=== PATIENT | female | born 1990 | race Caucasian/White ===

== ENCOUNTER 2019-01-18 18:54 | Inpatient (IN) | payer OTHER ==
[~2019-01-18] VITALS: Ht 157.5 cm; Wt 56.8 kg
[2019-01-18 11:40] VITALS: BP 124/87
--- NOTE | 2019-01-18 18:58 | NUR ---
PT A/OX1, BIB RA100 FROM [facility], FOR ETOH INTOXICATION. BGL WAS 121 IN THE FIELD. PER PARAMEDICS, PT WAS FOUND AT THE [facility]BER [facility] W/ HEAVY ETOH ODOR ON BREATH AND INFORMED BY THE STAFF MEMBERS THAT THE PT HAS BEEN DRINKING ALCOHOL TODAY. PT PRESENTS W/ HEAVY ETOH ODOR ON BREATH, OF CLEAR SPEECH, BUT UNABLE TO REMEMBER THE NAME OF THE [facility] SHE CURRENTLY RESIDES IN. VSS. PT DOES NOT APPEAR TO BE IN ANY APPARENT DISTRESS AT THIS TIME.
--- NOTE | 2019-01-18 19:03 | NUR ---
SHIFT REPORT GIVEN TO JESUSITA Junior RN.
--- NOTE | 2019-01-18 20:32 | NUR ---
Patients mother Nila called requesting update on daughters status. Was able to retrieve medical hx on patient. Patient has hx of eating d/o, alcohol abuse. Patient is staying at [facility]'s house in [place], a sober living facility. Mother stated to call Zeinab, auto repair shop manager, at [phone]. Patient is able to stay over the night and there is plan to transfer to [facility] tomorrow. Patient in bed asleep in lowest position, side rails up x2, call light within reach. NAD, VSS
--- NOTE | 2019-01-18 20:50 | NUR ---
Patient transported to CT in stable condition.
[2019-01-18] MEDS ORDERED: IV NORMAL SALINE 1000 ML BAG IV ONE (21:00)
[2019-01-18 21:06] LABS: BASOPHILS % (AUTO) 0.3 % (0.0-2.0); EOSINOPHILS % (AUTO) 0.1 % (0.0-7.0); HEMATOCRIT 38.9 % (31.2-41.9); HEMOGLOBIN 13.2 g/dL (10.9-14.3); LYMPHOCYTES # (AUTO) 2.3 K/uL (20.0-40.0); LYMPHOCYTES % (AUTO) 27.7 % (20.5-51.5); MEAN CORPUSCULAR HEMOGLOBIN 32.6 uug (24.7-32.8); MEAN CORPUSCULAR HGB CONC 34 g/dL (32.3-35.6); MEAN CORPUSCULAR VOLUME 96.2 fL (75.5-95.3); MONOCYTES # (AUTO) 0.4 K/uL (2.0-10.0); MONOCYTES % (AUTO) 5.4 % (0.0-11.0); NEUTROPHILS # (AUTO) 5.4 K/uL (1.8-8.9); NEUTROPHILS % (AUTO) 66.5 % (38.5-71.5); PLATELET COUNT (AUTO) 379 K/uL (179-408); RED BLOOD CELL COUNT(AUTO) 4.04 MIL/uL (3.63-4.92); WHITE BLOOD COUNT (AUTO) 8.1 K/uL (3.8-11.8)
[2019-01-18 21:19] LABS: ALANINE AMINOTRANSFERASE 49 U/L (14-59); ALKALINE PHOSPHATASE 57 U/L (50-136); ASPARTATE AMINOTRANSFERASE 42 U/L (15-37); BILIRUBIN,DIRECT 0.1 mg/dL (0.0-0.2); BILIRUBIN,TOTAL 0.2 mg/dL (0.2-1.0); CARBON DIOXIDE 25 mmol/L (21-32); CHLORIDE 105 mmol/L (98-107); CREATININE 0.7 mg/dL (0.6-1.3); GLUCOSE 89 mg/dL (74-106); POTASSIUM 3.3 mmol/L (3.5-5.1); TOTAL PROTEIN, SERUM 7.6 g/dL (6.4-8.2); UREA NITROGEN, BLOOD 10 mg/dL (7-18)
[2019-01-18 21:26] LABS: ACETAMINOPHEN < 2.0 ug/mL (10-30); THYROID STIMULATING HORMONE 3.851 mIU/mL (0.358-3.740)
--- NOTE | 2019-01-18 22:30 | NUR ---
Report given to JASEN Alejandro TELE.
--- NOTE | 2019-01-18 22:35 | NUR ---
Patient transported to TELE via gurney in stable condition.
--- NOTE | 2019-01-18 22:46 | NUR ---
RECEIVED PT FROM ER VIA [facility]. DX:AMS SECONDARY TO ALCOHOL INTOXICATION. UNDER DR LEYDA RAMIRES. PT SHOWS NO SIGNS OF ACUTE DISTRESS. BELONGING LIST DONE. ADMISSION PROCESS AND CARE PLAN INITIATED. GROUP HOME ASSESSMENT DONE. CALL LIGHT WITHIN REACH. BED ALARM ON AND IN LOW POSITION. SAFETY AND COMFORT PROVIDED. WILL CONTINUE TO MONITOR.
[2019-01-18 22:52] VITALS: BP 107/63
[2019-01-19] VITALS: BP 105/63
--- NOTE | 2019-01-19 00:20 | NUR ---
GOT CRITICAL LAB OF 2.9 LACTIC ACID FOR THE PT. NOTIFY DR. LEYDA RAMIRES REGARDING CRITICAL LAB. CHARGE NURSE AWARE. PT STABLE IN NO ACUTE DISTRESS. WILL CONTINUE TO MONITOR.
[2019-01-19] MEDS ORDERED: ACETAMINOPHEN 325 MG TABLET PO PRN (00:30)
[2019-01-19] MEDS ORDERED: Z GUARD REMEDY PASTE 57 GM TUBE TOP PRN (00:30)
[2019-01-19] MEDS ORDERED: ONDANSETRON 4 MG/2 ML VIAL IV PRN (00:30)
[2019-01-19] MEDS ORDERED: LORAZEPAM 2 MG/1 ML VIAL IV PRN (00:30)
[2019-01-19] MEDS ORDERED: THIAMINE HCL INJ 100 MG in IV DEXTROSE 5% 50 ML IV ONE (00:30)
[2019-01-19] MEDS ORDERED: THIAMINE HCL 200 MG/2 ML VIAL ONE (01:44)
[2019-01-19] MEDS: IV NS 1000 ML 1,000 ML IV PRN ×2 (01:55→17:23)
[2019-01-19 04:00] VITALS: BP 95/60
[2019-01-19] MEDS: PANTOPRAZOLE SODIUM 40 MG TABLET.DR PO SCH (06:00)
--- NOTE | 2019-01-19 06:12 | NUR ---
PT SLEPT THROUGHOUT THE SHIFT. PT SHOWS NO SIGNS OF ACUTE DISTRESS. PRESCRIBED MEDICATION GIVEN AND PT TOLERATED IT WELL. SAFETY AND COMFORT PROVIDED.ALL NEEDS ARE MET.WILL ENDORSE ACCORDINGLY TO INCOMING NURSE FOR CONTINUITY OF CARE.
[2019-01-19 08:00] VITALS: BP 112/73
[2019-01-19] MEDS: THIAMINE HCL 100 MG TABLET PO SCH (08:17)
[2019-01-19] MEDS: FOLIC ACID 1 MG TABLET PO SCH (08:17)
[2019-01-19] MEDS: MULTIVITAMINS,THERAPEUTIC TABLET PO SCH (08:17)
[2019-01-19] MEDS ORDERED: POTASSIUM CHLORIDE 20 MEQ TAB.PRT.SR PO ONE (11:00)
[2019-01-19 11:40] VITALS: BP 106/65
[2019-01-19 15:50] VITALS: BP 130/85
[2019-01-19 19:22] VITALS: BP 120/81
--- NOTE | 2019-01-19 19:30 | NUR ---
Received patient awake, alert and oriented x4. Patient shows no signs of acute distress. No s/s of withdrawal. IV intact and patent. Safety and comfort measures implemented. Patient verbalizes understanding of plan of care. Bed in lowest and locked position with side rails up x2. Call light within reach. Will continue to monitor throughout shift.
[2019-01-20 03:11] VITALS: BP 117/82
--- NOTE | 2019-01-20 04:05 | NUR ---
INFORMATION SENT: [employer],UR 01/19 INSURANCE NAME: [employer] / [employer] FAX NUMBER: [phone] / [phone] FAX SENT
--- NOTE | 2019-01-20 06:32 | NUR ---
Patient slept throughout shift. No signs of acute distress. Denies pain. VSS. Safety and comfort measures implemented. All needs met. Call light within reach. Continue plan of care; endorsed.
[2019-01-20 07:00] LABS: BASOPHILS % (AUTO) 0.2 % (0.0-2.0); EOSINOPHILS % (AUTO) 0.3 % (0.0-7.0); HEMATOCRIT 36.2 % (31.2-41.9); HEMOGLOBIN 12.4 g/dL (10.9-14.3); LYMPHOCYTES # (AUTO) 0.8 K/uL (20.0-40.0); LYMPHOCYTES % (AUTO) 15.3 % (20.5-51.5); MEAN CORPUSCULAR HEMOGLOBIN 33.1 uug (24.7-32.8); MEAN CORPUSCULAR HGB CONC 34 g/dL (32.3-35.6); MEAN CORPUSCULAR VOLUME 96.6 fL (75.5-95.3); MONOCYTES # (AUTO) 0.4 K/uL (2.0-10.0); MONOCYTES % (AUTO) 7.7 % (0.0-11.0); NEUTROPHILS # (AUTO) 4.2 K/uL (1.8-8.9); NEUTROPHILS % (AUTO) 76.5 % (38.5-71.5); PLATELET COUNT (AUTO) 264 K/uL (179-408); RED BLOOD CELL COUNT(AUTO) 3.75 MIL/uL (3.63-4.92); WHITE BLOOD COUNT (AUTO) 5.5 K/uL (3.8-11.8)
[2019-01-20 07:16] LABS: BILIRUBIN,TOTAL 0.6 mg/dL (0.2-1.0); CREATININE 0.6 mg/dL (0.6-1.3); MAGNESIUM 1.9 mg/dL (1.8-2.4); POTASSIUM 3.6 mmol/L (3.5-5.1); TOTAL PROTEIN, SERUM 6.8 g/dL (6.4-8.2)
[2019-01-20 07:23] LABS: THYROID STIMULATING HORMONE 4.068 mIU/mL (0.358-3.740)
[2019-01-20] MEDS: PANTOPRAZOLE SODIUM 40 MG TABLET.DR PO SCH (08:05)
[2019-01-20] MEDS: MULTIVITAMINS,THERAPEUTIC TABLET PO SCH (08:05)
[2019-01-20] MEDS: FOLIC ACID 1 MG TABLET PO SCH (08:05)
[2019-01-20] MEDS: THIAMINE HCL 100 MG TABLET PO SCH (08:05)
[2019-01-20] MEDS: IV NS 1000 ML 1,000 ML IV PRN (08:07)
[2019-01-20] MEDS ORDERED: THIA100T74 PO (11:26)
[2019-01-20] MEDS ORDERED: CHLO25CA22 PO (11:26)
[2019-01-20] MEDS ORDERED: FOLI1TAB16 PO (11:26)
--- NOTE | 2019-01-20 13:20 | NUR ---
PATIENT DISCHARGE COMPLETE. REMOVED FLUIDS, IDENTIFICATION WRISTBAND AND IV ACCESS. PATIENT'S FATHER PHOEBE JACKSON PICKED HER UP AND ASSUMES RESPONSIBILITY FOR TAKING HER TO CONTINUE TREATMENT. NO DISTRESS NOTED UPON DISCHARGE, PATIENT STABLE.
== END 2019-01-20 13:25 | disposition home or self-care (01) | DRG 775 ==
LOC: ER 18:54 → TELE3 22:25 → MEDSURG3 01-19 17:06
PROVIDERS: ADMIT Nurse Practitioner Acute Care; ATTEND Nurse Practitioner Acute Care
DX: F10.129 Alcohol abuse with intoxication, unspecified (principal); G92 Toxic encephalopathy; E87.6 Hypokalemia; E03.9 Hypothyroidism, unspecified; F17.210 Nicotine dependence, cigarettes, uncomplicated; Y90.8 Blood alcohol level of 240 mg/100 ml or more
CPT/HCPCS: 36415; 70030-TC; 70450; 71045; 83605; 83690; 83735; 84100; 84443; 85025; 85730; 87040; 93005; 93307; A4663; G0378; G0480; G0480-TC; J3411; J7030; J7060